=== PATIENT | male | born 1965 | race Caucasian/White ===

== ENCOUNTER → 2018-09-30 10:42 | Outpatient (CLI) | payer OTHER ==
[2009-06-08 06:37] VITALS: BMI 30.4
== END | disposition home or self-care (01) ==
LOC: D.HCCARDIO 10:30
PROVIDERS: ATTEND Internal Medicine Interventional Cardiology
DX: R01.1 Cardiac murmur, unspecified (principal)

== ENCOUNTER → 2019-10-05 10:20 | Outpatient (CLI) | payer OTHER ==
[2009-06-08 06:37] VITALS: BMI 30.4
--- NOTE | 2019-10-07 14:25 | EC ---
PATIENT:MARKO BUTTS DATE OF SERVICE: 10/05/19 SEX: M MEDICAL RECORD: [id number] DATE OF : 65 LOCATION:[facility] AGE OF PATIENT: 54 ADMISSION DATE: 10/05/19 REFERRING PHYSICIAN: INTERPRETING PHYSICIAN: CLARISSA FOSTER MD ECHOCARDIOGRAM REPORT ECHO CHARGES 4 ECHO COMPLETE Date: 10/05/19 CLINICAL DIAGNOSIS: HX OF MITRAL VALVE PROLAPSE AND MITRAL REGURG ECHOCARDIOGRAPHIC MEASUREMENTS (adult normal given) AC root (d.<3.7cm) 3.8 cm LV Septum d (<1.2 cm> 1.3 cm Valve Excursion 2.0 cm LV Septum (systole) 1.5 cm Left Atria (s.<4.0cm> 3.5 cm LVPW d(<1.2cm) 1.3 cm RV (d.<2.3cm) 4.1 cm LVPW (sytole) 1.5 cm LV diastole(<5.6CM) 4.8 cm MV E-F(>70mm/sec) cm LV systole 3.6 cm LVOT Diameter 2.1 cm MV exc.(>10mm) 1.8 cm Est.ejection fraction (50-75%) % DOPPLER: LVIT cm/sec A 70.0 cm/sec E 60.0 cm/sec LA cm/sec RVSP 30 mmHg LVOT 88 cm/sec AOP1/2T m/s Asc. Ao 1016 cm/sec RVOT 62 cm/sec RA cm/sec PA 100 cm/sec AV Gradient Peak 5.40 mmHg AV Mean 2.78 mmHg AV Area 2.6 cm MV Gradient Peak 2.17 mmHg MV Mean 0.92 mmHg MV Area cm COMMENTS: Split Leather Department Supervisor: 2 RUEL JOHN Airplane Pilot Supervisor: 3 Dr. Rosen TAPE# PACS Pericardial Effusion N DATE OF SERVICE: Adequate 2D, color flow imaging, spectral Doppler, and M-Mode. Mild LVH. LV internal dimensions are normal. Wall motion is normal. EF is greater than or equal to 55%. Aortic valve is tricuspid. No evidence of stenosis by Doppler interrogation. Left atrium is normal at 3.5 cm. Mitral cells shows mild prolapse of the posterior leaflet and mild MR. Right-sided chambers are grossly normal. Mild TR. ECHOCARDIOGRAM REPORT [id number] MARKO BUTTS TRANSINT:[id number] Voice Confirmation ID: [id number] DOCUMENT ID: [id number] CLARISSA FOSTER MD at 1425 CC: [id number] DICTATION DATE: 10/06/19 1145 [employer] APPRENTICE: 10/06/191952 DEP CLI 10/05/19 [place] [id number] [place] [id number]
== END | disposition home or self-care (01) ==
LOC: D.HCCECHO 10:20
PROVIDERS: ATTEND Internal Medicine Interventional Cardiology
DX: I34.1 Nonrheumatic mitral (valve) prolapse (principal)